=== PATIENT | male | born 1970 | race Caucasian/White ===

== ENCOUNTER 2019-07-18 00:57 | Inpatient (IN) | payer OTHER ==
[~2019-07-18] VITALS: Ht 182.9 cm; Wt 70.3 kg
[2019-07-18 02:25] LABS: BASOPHIL % 1.8 % (0-2); PLATELET COUNT 247 x10^3mcL (130-400)
[2019-07-18 02:28] LABS: rbc morphology (normal/abnorm) ABNORMAL (NORMAL)
[2019-07-18 02:32] LABS: CK-MB 0.5 ng/mL (0-3.6)
[2019-07-18 02:42] LABS: ALBUMIN 1.4 g/dL (3.4-5.0); ALKALINE PHOSPHATASE 667 U/L (46-116); ALT/SGPT 37 U/L (16-63); AST/SGOT 126 U/L (15-37); CALCIUM 8.4 mg/dL (8.5-10.1); CHLORIDE SERUM 105 mmol/L (98-107); CREATININE SERUM 2.3 mg/dL (0.7-1.3); GFR1 32 mL/min; GLUCOSE SERUM 92 mg/dL (74-106); SODIUM SERUM 142 mmol/L (136-145); TOTAL PROTEIN, SERUM 6.9 g/dL (6.4-8.2)
[2019-07-18 02:44] LABS: POTASSIUM SERUM 7.2 mmol/L (3.5-5.1)
[2019-07-18] MEDS ORDERED: XELODA500 MG PO (02:52)
[2019-07-18] MEDS ORDERED: PERIOGARD473 ML (02:53)
[2019-07-18] MEDS ORDERED: [UNRECOGNIZED DRUG - CODE] IV (02:55)
[2019-07-18] MEDS ORDERED: DSS250 MG PO (02:56)
[2019-07-18] MEDS ORDERED: DULCOLAX10 M1 PR (02:56)
[2019-07-18] MEDS ORDERED: GLUCERNA 1.2 C237 ML (02:58)
[2019-07-18] MEDS ORDERED: NORCO1 TA2 PO (02:59)
[2019-07-18] MEDS ORDERED: PROBIOTIC-10 11 EACH (03:01)
[2019-07-18] MEDS ORDERED: MARINOL5 MG PO (03:03)
[2019-07-18] MEDS ORDERED: FLEET ENEMA135 ML (03:03)
[2019-07-18] MEDS ORDERED: GLUCAGON EMERGEN1 MG (03:05)
[2019-07-18 04:52] VITALS: BP 115/77
[2019-07-18 04:53] LABS: AMPHETAMINE QUAL UR NONE DETECTED (See below)
[2019-07-18 08:30] VITALS: BP 124/76
[2019-07-18 08:44] VITALS: Ht 182.9 cm; Wt 70.3 kg
[2019-07-18 09:00] VITALS: BP 117/78
[2019-07-18 10:08] LABS: CARBON DIOXIDE 25.8 mmol/L (21-32); CREATININE SERUM 2.4 mg/dL (0.7-1.3)
[2019-07-18 10:09] LABS: CALCIUM 8.7 mg/dL (8.5-10.1)
[2019-07-18 10:14] LABS: POTASSIUM SERUM 6.8 mmol/L (3.5-5.1)
[2019-07-18 11:21] VITALS: BP 120/75
[2019-07-18 11:22] LABS: PLATELET COUNT 225 x10^3mcL (130-400)
[2019-07-18 11:28] LABS: RED CELL DISTRIBUTION WIDTH 26.6 % (11.5-14.5)
[2019-07-18 11:29] LABS: IRON 26 ug/dL (65-170); TOTAL IRON BINDING CAPACITY 72 ug/dL (250-450)
[2019-07-18 11:38] LABS: CALCIUM 8.2 mg/dL (8.5-10.1); CARBON DIOXIDE 25.2 mmol/L (21-32); CREATININE SERUM 2.4 mg/dL (0.7-1.3); MAGNESIUM 2.3 mg/dL (1.8-2.4); PHOSPHOROUS 6.8 mg/dL (2.5-4.9)
[2019-07-18 11:38] LABS: microscopic required? YES; urine erythrocyte 2+ (NEGATIVE)
[2019-07-18 11:42] LABS: POTASSIUM SERUM 6.7 mmol/L (3.5-5.1)
[2019-07-18 13:27] LABS: BAND NEUTROPHIL 2 % (0-10); BASOPHIL 0 % (0-2); MONOCYTE 4 % (0-7); SEGMENTED NEUTROPHILS 91 % (37-75)
[2019-07-18 13:29] LABS: PLATELET MORPHOLOGY PLATELETS INCREASED; rbc morphology (normal/abnorm) ABNORMAL (NORMAL)
[2019-07-18 15:09] VITALS: BP 122/83
[2019-07-18 21:36] VITALS: BP 115/81
[2019-07-19 02:05] VITALS: BP 111/73
[2019-07-19 04:25] VITALS: BP 112/68
[2019-07-19 08:13] VITALS: BP 118/73
[2019-07-19 11:43] VITALS: BP 114/53
[2019-07-19 17:05] VITALS: BP 106/67
[2019-07-20] VITALS (7 sets, daily range): BP systolic 81–114; BP diastolic 40–85
== END 2019-07-21 05:52 | disposition expired | DRG 720 ==
LOC: ED 00:57 → DU 03:11 → IC 03:11 → DU 20:28
PROVIDERS: Emergency Medicine; Internal Medicine; ADMIT General Practice
DX: A41.9 Sepsis, unspecified organism (principal); N17.0 Acute kidney failure with tubular necrosis; J96.01 Acute respiratory failure with hypoxia; E43 Unspecified severe protein-calorie malnutrition; G93.41 Metabolic encephalopathy; C78.02 Secondary malignant neoplasm of left lung; E83.51 Hypocalcemia; E86.0 Dehydration; C78.7 Secondary malignant neoplasm of liver and intrahepatic bile duct; E87.2 Acidosis; E87.5 Hyperkalemia; C18.9 Malignant neoplasm of colon, unspecified; D63.0 Anemia in neoplastic disease; I10 Essential (primary) hypertension; E11.9 Type 2 diabetes mellitus without complications; F41.9 Anxiety disorder, unspecified; Z68.24 Body mass index [BMI] 24.0-24.9, adult; Z90.49 Acquired absence of other specified parts of digestive tract; Z79.899 Other long term (current) drug therapy; Z66 Do not resuscitate
CPT/HCPCS: 82962; G0378; J0610; J1200; J1815; J2270; J2405; J2543; J3370; J3490; J7030; J7042; J7050; P9016; Q0092